=== PATIENT | male | born 1960 | race Caucasian/White ===

== ENCOUNTER 2023-03-23 17:39 | Emergency (ER) | payer BC, SELFPAY ==
[2023-03-23 18:05] VITALS: BP 150/93; PULSE 83; RESP 19; TEMP 36.9; O2SAT 98; BMI 19.5
[2023-03-23 18:16] LABS: Apearance,Urine Clear (Clear); Color,Urine Yellow (Yellow)
[2023-03-23 18:17] LABS: Bilirubin,Urine Negative (Negative); Blood, Urine Negative (Negative); Glucose,Urine (UA) >=1000 (Negative); Ketones,Urine 15 (Negative); PH,Urine 6.5 (5.0-8.5); Protein,Urine Negative (Negative); UTC Leukocyte Esterase,Urine Negative (Negative); UTC Nitrate,Urine Negative (Negative); Urobilinogen,Urine 1 EU/dl (0.2)
--- NOTE | 2023-03-23 18:20 | EXP.UTC ---
Discharge Plan Disposition Patient Disposition: Home, Self-Care Condition: Good Prescriptions Prescriptions: New acyclovir 800 mg tablet 800 mg PO 5XDAY 7 Days Qty: 35 0RF Rx Instructions: while awake; give 5 doses in 24 hours No Action metformin 500 mg Tablet 500 mg PO DAILY Referrals Follow up/Referrals: Provider,Referral, MD [Primary Care Provider] - See instructions Activity Restrictions/Add. Instructions Additional Instructions/Restrictions: You was given a list of Family Doctors, pick yours from the list and call tomorrow and make appointment as soon as possible Make sure to watch what you eat Take medication as prescribed GO STRAIGHT TO ER IF ANY WORSENING OF PAIN OR IF YOU NOTICE INCREASED THIRST, CONFUSION OR LIFE THREATENING SYMPTOMS Clinical Impressions Clinical Impression: Shingles Qualifiers: Herpes zoster complications: without complications Qualified Code(s): B02.9 - Zoster without complications Stand Alone Forms Stand Alone Forms: Work/School Release Instructions Patient Instructions: Shingles, DI for Shingles, Acyclovir Discharge ED Provider: Myriam Kumar [facility] General Stated complaint: pain in right side Mode of Arrival: Ambulatory Source of Information: Patient Limitations: No Limitations Time Seen by Provider: 03/23/23 18:20 Description of Symptoms (Recalled from Triage Doc. by RN): PATIENT C/O PAIN IN RIGHT SIDE X 2 DAYS HEENT Symptoms (Recalled from RN notes): No Resp Symptoms (Recalled from RN notes): No Skin Symptoms (Recalled from RN notes): No MS Symptoms (Recalled from RN notes): No Functional Status (Recalled from RN notes): WNL History of Present Illness Provider Complaint: Patient states that he has been having pain in his right side that is tender to the touch States that certain ways he moves makes the pain worse States that it is like he is very sore States that he is a diabetic but denies urinary symptoms, denies thirst, denies problems with having bowel movement Related Data Home Medications Medication Instructions Recorded Confirmed metformin 500 mg tablet 500 mg PO DAILY 03/23/23 03/23/23 Previous Rx's Medication Instructions Recorded acyclovir 800 mg tablet 800 mg PO 5XDAY 7 days #35 tabs 03/23/23 Allergies Allergy/AdvReac Type Severity Reaction Status Date / Time No Known Allergies Allergy Verified 03/23/23 18:15 Worker's Comp Is this a Worker's Comp case?: No [facility] Disclaimer: The information contained in this section may have been updated after the patient was seen, as this information can be updated by other users. Medical History (Updated 03/23/23 @ 18:41 by Myriam Kumar APRN) Diabetes mellitus, type 2 Social History Smoking Status: Unknown if ever smoked alcohol intake: never current occupational status: employed Travel in the last 8 weeks: None ROS Obtained: Yes All systems reviewed & no additional complaints except as documented and Yes Systems reviewed as appropriate & no additional complaints except as documented Constitutional Constitutional: Reports system reviewed and no additional complaints, except as documented, Reports as per HPI, Denies excessive sweating and Denies fatigue ENT Ears, Nose, Mouth, and Throat: Reports system reviewed and no additional complaints, except as documented and Reports as per HPI Cardiovascular Cardiovascular: Reports system reviewed and no additional complaints, except as documented, Reports as per HPI and Denies palpitations Respiratory Respiratory: Reports system reviewed and no additional complaints, except as documented and Reports as per HPI Gastrointestinal Gastrointestingal: Reports system reviewed and no additional complaints, except as documented and as per HPI; Denies abdominal pain, constipation, diarrhea, nausea or vomiting Musculoskeletal Musculoskeletal: Reports system reviewed and no additional complaints, except as documented, Reports as per HPI and Reports other Comments: Pain in right side for last couple of days, sore to the touch Integumentary/Breasts Skin/Breast: Reports system reviewed and no additional complaints, except as documented and Reports as per HPI Neurologic Neurologic: Reports system reviewed and no additional complaints, except as documented and Reports as per HPI Endocrine Endocrine: Reports system reviewed and no additional complaints, except as documented, Reports as per HPI, Denies cold intolerance, Denies excessive sweating, Denies fatigue, Denies flushing, Denies palpitations, Denies polydipsia and Denies polyuria Physical Exam General General appearance: alert and in no apparent distress ENT ENT exam: Present mucous membranes moist Respiratory Respiratory exam: Present normal lung sounds bilaterally; Absent respiratory distress or wheezes Cardiovascular Cardiovascular exam: Present regular rate, normal rhythm and normal heart sounds Abdominal Exam Abdominal exam: Present soft, tenderness (tenderness in right side see below) and normal bowel sounds; Absent distention Comment: tenderness in right side noticed blister like rash that extends on right side to back appears like shingles Neurological Exam Neurological exam: Present alert, oriented X3 and normal gait Skin Skin exam: Present rash (red blister like rash on right side that appears like shingles ) Medical Decision Making Derick Inquiry Pt receiving controlled substance: No Derick was queried for this patient: No Vital Signs: 03/23/23 18:05 Temperature 98.5 F Temperature Source Oral Pulse Rate [Left Brachial] 83 Respiratory Rate 19 Blood Pressure [Left Arm] 150/93 H Blood Pressure Mean [Left Arm] 112 Blood Pressure Source [Left Arm] Automatic Cuff Blood Pressure Position [Left Arm] Sitting 02 Sat by Pulse Oximetry 98 Oxygen Delivery Method Room Air Lab Data Lab results reviewed: Yes I reviewed the patient's lab results. Lab Results 03/23/23 18:13: Urine Color Yellow, Urine Appearance Clear, Urine pH 6.5, Ur Specific Riley 1.020, Urine Protein Negative, Urine Glucose (UA) >=1000, Urine Ketones 15, Urine Blood Negative, Urine Nitrate Negative, Urine Bilirubin Negative, Urine Urobilinogen 1, Ur Leukocyte Esterase Negative Medical Decision Narrative: Glucose and ketones noted in UA FSBS 298 discussed with pateint and recommended transfer to the ED for further work up and evaluation due to uncontrolled diabetes and glucose and ketones in urine and patient declined States that he does not want to go to the ED he would a find family doctor and make appointment as soon as possible Patient educated on risks even and still declined transfer to the ED
[2023-03-23 18:26] LABS: POC Glucose,Bedside 298 (70-110)
[2023-03-23 18:46] VITALS: BP 150/93; PULSE 83; RESP 19; TEMP 36.9; O2SAT 98
== END 2023-03-23 18:49 | disposition home or self-care (01) ==
PROVIDERS: Emergency Provider Nurse Practitioner
DX: E11.65 Type 2 diabetes mellitus with hyperglycemia (principal); B02.9 Zoster without complications; Z79.84 Long term (current) use of oral hypoglycemic drugs; M54.59 Other low back pain
CPT/HCPCS: 81003; 82962; 99204; 99212; G0463